=== PATIENT | female | born 1955 | race Caucasian/White ===

== ENCOUNTER 2019-09-09 12:05 | Outpatient (CLI) | payer OTHER, SELFPAY ==
--- NOTE | 2019-09-09 12:15 | XRR_ITS ---
PROCEDURE INFORMATION: Exam: XR Right Knee Exam date and time: 09/09/2019 12:33 PM Age: 64 years old Clinical indication: Pain; Knee; Right; Additional info: Right knee pain TECHNIQUE: Imaging protocol: XR Right knee. Views: 3 views. COMPARISON: No relevant prior studies available. FINDINGS: Bones/joints: Negative for acute bony abnormality Soft tissues: Normal. XR/XR knee RT 3V* [id number] IMPRESSION: No acute findings.
== END 2019-09-09 12:06 | disposition home or self-care (01) ==
LOC: RAD 12:10
PROVIDERS: Family Provider Electrodiagnostic Medicine; PCP Electrodiagnostic Medicine; Visit Provider Family Medicine
DX: M25.561 Pain in right knee (principal)
CPT/HCPCS: 73562; 80053; 80061; 82044; 83036; 85025

== ENCOUNTER 2019-10-12 06:58 | Outpatient (CLI) | payer OTHER, SELFPAY ==
--- NOTE | 2019-10-12 07:15 | MR_ITS ---
WS: [id number] MRI RIGHT KNEE HISTORY: right knee pain COMPARISON: 09/09/2019 Anterior cruciate ligament: Small amount increased signal in the central proximal ACL. No full-thickn ess tear. Posterior cruciate ligament: Mild buckling of the PCL. Medial collateral ligament: MCL is partially displaced from the knee joint by an extruded meniscus an d degenerative changes at the medial compartment. Posterior lateral corner structures: Intact. Medial menisci: Partially extruded body of the meniscus from the joint space. There is increased sign al in the partially extruded component. Linear area of increased signal in the posterior horn consist ent with a horizontal tear which extends towards the free edge and midbody. Lateral meniscus: Fraying along the articular surfaces of the posterior horn. There is some intrasubs tance degeneration and smudginess of the free edge but no definite tear. Extensor mechanism: Distal quadriceps tendon and patellar tendons are intact. Fluid and soft tissue: No joint effusion. No Tracy's cyst. Osseous and articular structures: Patellofemoral compartment: No full-thickness defects. Slight lateral tilting of the patella. No joleen ow edema. Medial compartment: Mild narrowing of the medial compartment. Thinning and fissuring of the cartilage with small osteophytes from the femoral condyle and tibial plateau. Small amount of marrow edema in the tibial plateau adjacent to the MCL. Lateral compartment: Mild narrowing of the lateral compartment with thinning and fissuring of the car tilage. MR/MR knee RT wo con* [id number] IMPRESSION: 1. Technically limited evaluation of the knee due to body habitus and inabilit y to utilize coil correctly. 2. Extruded medial meniscus with horizontal tear in the posterior horn. 3. Moderate internal derangement medial compartment with mild loss of joint sp andree, thinning of the cartilage and the extruded meniscus. 4. Intrasubstance degeneration posterior horn lateral compartment. 5. Suspect partial tear proximal ACL.
== END 2019-10-12 06:59 | disposition home or self-care (01) ==
LOC: RADSHAW 07:00
PROVIDERS: Family Provider Electrodiagnostic Medicine; PCP Family Medicine; Visit Provider Family Medicine
DX: S83.241A Other tear of medial meniscus, current injury, right knee, initial encounter (principal); X58.XXXA Exposure to other specified factors, initial encounter; M17.11 Unilateral primary osteoarthritis, right knee; M25.561 Pain in right knee
CPT/HCPCS: 73721

== ENCOUNTER 2019-12-14 14:49 | Outpatient (RCR) | payer OTHER, SELFPAY | END 2020-01-03 23:59 | disposition home or self-care (01) | LOC: SPT 14:49 | PROVIDERS: PCP Family Medicine; Referring Provider Orthopaedic Surgery; Visit Provider Orthopaedic Surgery | DX: M17.11 Unilateral primary osteoarthritis, right knee (principal) | CPT/HCPCS: 97110; 97112; 97161; 97530 ==

== ENCOUNTER 2020-05-23 09:34 | Outpatient (RCR) | payer OTHER, SELFPAY | END 2020-06-04 23:59 | disposition home or self-care (01) | LOC: SPT 09:34 | PROVIDERS: PCP Family Medicine; Referring Provider Family Medicine; Visit Provider Family Medicine | DX: S86.112D Strain of other muscle(s) and tendon(s) of posterior muscle group at lower leg level, left leg, subsequent encounter (principal); X58.XXXD Exposure to other specified factors, subsequent encounter | CPT/HCPCS: 97110; 97161 ==

== ENCOUNTER 2020-06-05 06:00 | Outpatient (RCR) | payer SELFPAY | END 2020-07-04 23:59 | disposition home or self-care (01) | LOC: SPT 06:00 | PROVIDERS: PCP Family Medicine; Referring Provider Family Medicine; Visit Provider Family Medicine | DX: S86.112D Strain of other muscle(s) and tendon(s) of posterior muscle group at lower leg level, left leg, subsequent encounter (principal); X58.XXXD Exposure to other specified factors, subsequent encounter | CPT/HCPCS: 97110 ==

== ENCOUNTER → 2020-08-01 10:37 | Outpatient (BNVA) | payer MEDICARE, SELFPAY | PROVIDERS: PCP Family Medicine; Visit Provider Family Medicine | DX: E11.9 Type 2 diabetes mellitus without complications (principal); I10 Essential (primary) hypertension; E03.9 Hypothyroidism, unspecified | CPT/HCPCS: 80053; 80061; 81015; 82043; 83036; 84443; 85025 ==

== ENCOUNTER → 2020-08-29 08:25 | Outpatient (BNVA) | payer MEDICARE, SELFPAY | PROVIDERS: PCP Family Medicine; Visit Provider Obstetrics & Gynecology | DX: Z01.419 Encounter for gynecological examination (general) (routine) without abnormal findings (principal) | CPT/HCPCS: 88175 ==

== ENCOUNTER → 2020-09-22 12:01 | Outpatient (BNVA) | payer MEDICARE, SELFPAY | PROVIDERS: PCP Family Medicine; Visit Provider Surgery | DX: Z01.812 Encounter for preprocedural laboratory examination (principal) | CPT/HCPCS: 87635 ==

== ENCOUNTER → 2020-09-27 08:28 | Day surgery (SDC) | payer MEDICARE, SELFPAY ==
[2020-09-26 10:40] VITALS: BMI 45.1
[2020-09-27 09:09] VITALS: BP 148/88; PULSE 99; RESP 18; TEMP 36.5; O2SAT 96
[2020-09-27 09:11] LABS: Glucose Point of Care 161 mg/dL (70-110)
[2020-09-27] MEDS: sodium chloride 0.9% 1,000 ML 30 ML IV (09:12)
--- NOTE | 2020-09-27 09:14 | PC.NURSE ---
Pt voices prep was inadequate. Discussed with Dr Wharton. Will need tap water enema prior to procedure.
--- NOTE | 2020-09-27 09:18 | P.ANESASSM_ITS ---
Pre-Anesthetic Assessment Pre-Anesthetic Assessment: Height/Weight: Height 1.68 m Weight 127.006 kg Temp Pulse Resp BP Pulse Ox 97.7 F 99 18 148/88 96 09/27/20 09:09 09/27/20 09:09 09/27/20 09:09 09/27/20 09:09 09/27/20 09:09 Preop Diagnosis: screening colonoscopy Proposed Procedure: Operation Date: 09/27/20 09:30 Proposed Procedures p Colonoscopy 15135 Z12.11(Not Applicable) - Zuhair Wharton MD Was Beta Nina taken within 24 hours: Yes Last intake: Intake Last Liquid Date 09/26/20 Last Solid Date 09/25/20 Social: Social History: No alcohol and No tobacco Exam: Pre-Anes Outpt Exam: alert, oriented x 3, clear to auscultation bilaterally and regular rate & rhythm Airway: Submandibular: WNL Cervical ROM: WNL MP: 2 Dentition: Full CV/HEM: CV/HEM: HTN Metabolic: Metabolic: DM, Morbid obesity and Thyroid Musc/skel: Musc/skel: OA/DJD Anesthetic Plan: ASA status: 3 Anesthesia: MAC Risk of > 500 ml blood loss (7ml/kg in children): No Meds/Allergies Current Medications: Current Medications Generic Name Dose Route Start Last Admin Trade Name Freq PRN Reason Stop Dose Admin Sodium Chloride 1,000 mls @ 30 ml s/hr 09/27/20 08:45 09/27/20 09:12 Sodium Chloride 0.9% IV 09/28/20 08:44 30 mls/hr .Q24H RADHA Administration PFSH Anesthesia PFSH: Medical History (Updated 09/06/20 @ 16:25 by Becky Tellez MD) Anxiety and depression States that the anxiety is stress-induced and diagnosed in 2019 and is controlled by venlafaxine provided by her primary care provider. Benign hypertension Diagnosed in her 50s and controlled with medication managed by her primary care provider High cholesterol Diagnosed in July 2020 and is currently on medication. Hypothyroid Diagnosed in her 50s and controlled with medication managed by her primary care provider. Does not have an coil binder No pertinent past medical history Denies diabetes, asthma, seizures, DVT/PE PCP: Christos Type II diabetes mellitus, well controlled Diagnosed in 2007 and controlled with medication. She states her last hemoglobin A1c was 6. This is being managed by her primary care provider. Surgical History (Updated 09/06/20 @ 16:19 by Becky Tellez MD) H/O cataract extraction 2018-bilateral S/P dilation and curettage Hysteroscopy, D & C---04/24/2018---[place] for postmenopausal bleeding and presence of [place] [facility] [place]ology showed benign superficial endometrial and endocervical glands and stroma. Family History (Updated 08/29/20 @ 14:41 by Amy Gallardo, KATHLEEN) Father Heart disease Hypertension Hyperlipidemia Bleeding disorder bleeding problems started after a surgery Grandmother Diabetes paternal Sister Bleeding disorder bleeding problems started after a surgery Denies family history of Colon cancer Ovarian cancer Breast cancer Uterine cancer Thyroid condition Stroke Social History Smoking and tobacco status: never smoked Alcohol intake: never Data Anesthesia Other Labs: Laboratory Results - last 48 hr 09/27/20 09:06 POC Glucose 161 H Cardiac Studies: No Data to Display
--- NOTE | 2020-09-27 09:27 | W.PM.OPSFHP ---
Same Day Surgery H&P Indication for Procedure/HPI DATE OF PROCEDURE: September 27, 2020 CHIEF COMPLAINT/INDICATIONFOR SURGICAL PROCEDURE: Screening colonoscopy PREOP DIAGNOSIS: screening colonoscopy PLANNED PROCEDRUE: Operation Date: 09/27/20 09:30 Proposed Procedures p Colonoscopy 18507 Z12.11(Not Applicable) - Zuhair Wharton MD Medications/Allergies* Home Medications Medication Instructions Recorded Confirmed Type cholecalciferol (vitamin D3) 125 5,000 unit PO DAILY tab 09/09/19 09/26/20 History mcg (5,000 unit) disintegrating tablet naproxen sodium 220 mg tablet 220 mg PO DAILY PRN tab 08/01/20 09/26/20 History multivitamin [Multi-Day] 1 tab PO DAILY 09/26/20 09/26/20 History Allergies/Adverse Reactions Allergy/AdvReac Type Severity Reaction Status Date / Time egg Allergy Severe ADR-Itching Verified 09/27/20 09:08 milk Allergy Severe ADR-Itching Verified 09/27/20 09:08 peanut Allergy Severe ADR-Itching Verified 09/27/20 09:08 Current Medications: Generic Name Dose Route Start Last Admin Trade Name Freq PRN Reason Stop Dose Admin Sodium Chloride 1,000 mls @ 30 mls/hr 09/27/20 08:45 09/27/20 09:12 Sodium Chloride 0.9% IV 09/28/20 08:44 30 mls/hr .Q24H RADHA Administration Pertinent History/Comorbid Conditions* Medical History (Updated 09/06/20 @ 16:25 by Becky Tellez MD) Anxiety and depression States that the anxiety is stress-induced and diagnosed in 2019 and is controlled by venlafaxine provided by her primary care provider. Benign hypertension Diagnosed in her 50s and controlled with medication managed by her primary care provider High cholesterol Diagnosed in July 2020 and is currently on medication. Hypothyroid Diagnosed in her 50s and controlled with medication managed by her primary care provider. 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 She states her last hemoglobin A1c was 6. This is being managed by her primary care provider. Surgical History (Updated 09/06/20 @ 16:19 by Becky eTllez MD) H/O cataract extraction 2018-bilateral S/P dilation and curettage Hysteroscopy, D & C---04/24/2018---[place] for postmenopausal bleeding and presence of [place] [facility] [place]ology showed benign superficial endometrial and endocervical glands and stroma. Family History (Updated 08/29/20 @ 14:41 by Amy Gallardo, KATHLEEN) Diabetes Grandmother paternal Heart disease Father Hyperlipidemia Father Bleeding disorder Father bleeding problems started after a surgery Sister bleeding problems started after a surgery Hypertension Father Denies family history of Colon cancer Ovarian cancer Breast cancer Uterine cancer Thyroid condition Stroke Social History Smoking and tobacco status: never smoked Alcohol intake: never Pertinent Exam Findings alert, oriented x 3 and regular rate & rhythm Recommendations Surgery/Procedure today Coding Level of Care Code Acute Gypsum Calciner for Melinda Pete
--- NOTE | 2020-09-27 10:00 | PC.NURSE ---
Large results from tap water enema. Large stool, unable to see bottom of toilet. Will repeat tap water enema. Pt verbalizes understanding.
--- NOTE | 2020-09-27 10:31 | PC.NURSE ---
Pt rescheduled procedure for tomorrow r/t poor prep. Pt will continue clear liquid deit and repeat prep. NPO after midnight. Pt verbalized understanding. IV left in place in R hand. Secured with coban. Denies other needs at this time.
== END ==
PROVIDERS: PCP Family Medicine; Visit Provider Surgery
PROC: 0DJD8ZZ Inspection of Lower Intestinal Tract, Via Natural or Artificial Opening Endoscopic (ICD-10-PCS; CPT 45378; principal; 2020-09-27 10:00)
DX: Z53.8 Procedure and treatment not carried out for other reasons (principal); Z12.11 Encounter for screening for malignant neoplasm of colon; I10 Essential (primary) hypertension; E11.9 Type 2 diabetes mellitus without complications; E66.01 Morbid (severe) obesity due to excess calories; Z68.42 Body mass index [BMI] 45.0-49.9, adult; M19.90 Unspecified osteoarthritis, unspecified site; E03.9 Hypothyroidism, unspecified; Z82.49 Family history of ischemic heart disease and other diseases of the circulatory system; Z83.3 Family history of diabetes mellitus
CPT/HCPCS: 36416; 82962; J7030

== ENCOUNTER 2020-09-28 08:07 | Day surgery (SDC) | payer MEDICARE, SELFPAY ==
[2020-09-27 12:51] VITALS: BMI 41.9
[2020-09-28 09:11] VITALS: BP 153/90; PULSE 100; RESP 16; TEMP 36.1; O2SAT 95
--- NOTE | 2020-09-28 09:15 | P.ANESUD_ITS ---
Pre-Anesthetic Update Pre-Anesthetic Assessment: Date of Surgery/Procedure: 09/28/20 Preop Tatiana gnosis: screening colonoscopy Proposed Procedure: Operation Date: 09/28/20 09:00 Proposed Procedures p Colonoscopy 53066 z12.11(Not Applicable) - Zuhair Wharton MD Any changes to Pre-Anesthetic Assessment?: No Last Intake: Intake Last Liquid Date 09/27/20 Last Liquid Time 23:30 Last Solid Date 09/25/20 Last Solid Time 22:00 Vitals: Temperature 97 F L 09/28/20 09:11 Temperature Source Temporal Artery S can 09/28/20 09:11 Pulse Rate 100 09/28/20 09:11 Respiratory Rate 16 09/28/20 09:11 Blood Pressure 153/90 09/28/20 09:11 Blood Pressure Rachel n 111 09/28/20 09:11 Pulse Oximetry 95 09/28/20 09:11 Oxygen Delivery Me thod 09/28/20 09:11 Exam: Pre-Anes Outpt Exam: alert, oriented x 3, clear to auscultation bilaterally and regular rate & rhythm Cardiac Studies: No Data to Display
[2020-09-28 09:19] LABS: Glucose Point of Care 195 mg/dL (70-110)
[2020-09-28] MEDS: sodium chloride 0.9% 1,000 ML 30 ML IV (09:20)
--- NOTE | 2020-09-28 09:22 | W.PM.OPSUD ---
Surgery/Procedure H&P Update DATE OF PROCEDURE: September 28, 2020 DATE H&P PERFORMED: 09/27/20 H&P UPDATE INFORMATION: I have reviewed H&P completed within last 30 days, I have examined patient prior to procedure and No changes to prior documentation PREOP DIAGNOSIS: screening colonoscopy PLANNED PROCEDURE: Operation Date: 09/28/20 09:00 Proposed Procedures p Colonoscopy 13341 z12.11(Not Applicable) - Zuhair Wharton MD
[2020-09-28 09:52] VITALS: BP 166/99; PULSE 94; RESP 16; TEMP 36.7; O2SAT 94
--- NOTE | 2020-09-28 10:26 | ANE.PACU2 ---
Inpatient post-anesthesia follow up: Airway intact: Yes Vital signs: Temperature 98.1 F Pulse Rate 94 Respiratory Rate 16 Blood Pressure 166/99 Pulse Oximetry 94 Oxygen Delivery Me thod Room Air Oxygen Flow Rate Fraction of Inspir ed Oxygen Hydration adequate: Yes Nausea and vomiting: No Pain level: 1 Mental status: Baseline
== END 2020-09-28 10:24 | disposition home or self-care (01) ==
PROVIDERS: PCP Family Medicine; Visit Provider Surgery
PROC: 0DJD8ZZ Inspection of Lower Intestinal Tract, Via Natural or Artificial Opening Endoscopic (ICD-10-PCS; CPT 45378; principal; 2020-09-28 09:00)
DX: Z12.11 Encounter for screening for malignant neoplasm of colon (principal); D17.5 Benign lipomatous neoplasm of intra-abdominal organs; I10 Essential (primary) hypertension; E11.9 Type 2 diabetes mellitus without complications; E03.9 Hypothyroidism, unspecified
CPT/HCPCS: 36416; 45378; 82962; G0121; J2704; J7030

== ENCOUNTER 2020-10-03 14:37 | Outpatient (CLI) | payer MEDICARE, SELFPAY ==
--- NOTE | 2020-10-03 14:47 | MM_ITS ---
WS: [id number] SCREENING DIGITAL MAMMOGRAM WITH CAD HISTORY: SCREENING COMPARISON: 09/02/2018, 08/21/2017 and 07/20/2014 Bilateral CC and MLO views submitted. Computer aided detection analyzed. Breast composition: There are scattered areas of fibroglandular density. Increasing asymmetry in the lateral RIGHT breast on the CC projection measures 10 mm. Probably in the superior breast on the late ral projection. Benign calcifications in each breast. MM/[place] [id number] IMPRESSION: BI-RADS: 0-Incomplete: Need additional imaging evaluation FOLLOW UP: Need Additional Imaging RIGHT breast: Spot compression views (CC and MLO). True ML. Ultrasound to follo w if abnormality persists.
== END 2020-10-03 14:38 | disposition home or self-care (01) ==
LOC: RADSHAW 14:38
PROVIDERS: PCP Family Medicine; Visit Provider Family Medicine
DX: Z12.31 Encounter for screening mammogram for malignant neoplasm of breast (principal); N64.89 Other specified disorders of breast
CPT/HCPCS: 77067

== ENCOUNTER → 2020-10-11 07:44 | Outpatient (BNVA) | payer MEDICARE, SELFPAY | PROVIDERS: PCP Family Medicine; Visit Provider Family Medicine | DX: E78.00 Pure hypercholesterolemia, unspecified (principal) | CPT/HCPCS: 80053 ==

== ENCOUNTER 2020-10-27 08:17 | Outpatient (CLI) | payer MEDICARE, SELFPAY ==
--- NOTE | 2020-10-27 08:30 | US_ITS ---
WS: [id number] ADDITIONAL VIEWS RIGHT BREAST RIGHT breast ultrasound, limited HISTORY: ABNORMAL MAMMOGRAM COMPARISON: 10/03/2020, 09/02/2018 and 08/21/2017 Compression views right CC and MLO projection. True ML also submitted. The asymmetry in the lateral RIGHT breast seen best on the CC projection nearly completely resolves. There is still a mildly prominent asymmetry which will be followed up by ultrasound. Benign vascular calcifications. RIGHT breast ultrasound, limited. Round hypoechoic mass at 9:00, 1 cm from the nipple measures 9 x 6 x 7 mm. Size and location corresp ond to the mammographic abnormality. No increased vascularity. Similar mass was present on the study from 2017. On the most recent examination this mass was partially obscured. US/US breast RT complete [id number] IMPRESSION: BI-RADS: 3-Probably Benign FOLLOW-UP: 6 Month Follow-up Recommend 6 month ultrasound follow-up of the mass at 9:00, 1 cm from the nippl e in the RIGHT breast. I suspect this mass is been present since 2017 but inter mittently visualized due to overlying fibroglandular tissue. Consider short-ter m follow-up. Alternatively, this may undergo ultrasound guided biopsy.
== END 2020-10-27 08:18 | disposition home or self-care (01) ==
LOC: RADSHAW 08:21
PROVIDERS: PCP Family Medicine; Visit Provider Family Medicine
DX: R92.8 Other abnormal and inconclusive findings on diagnostic imaging of breast (principal); N63.15 Unspecified lump in the right breast, overlapping quadrants
CPT/HCPCS: 76641; 77065

== ENCOUNTER 2020-11-09 12:30 | Outpatient (CLI) | payer MEDICARE, SELFPAY ==
--- NOTE | 2020-11-09 13:00 | US_ITS ---
WS: [id number] ULTRASOUND-GUIDED RIGHT BREAST BIOPSY CLINICAL INFORMATION: abnormal mammogram COMPARISON: None. FINDINGS: The procedure including risks, benefits, and complications were discussed with the patient who agreed to proceed. Using sterile technique patient was prepped and draped in the usual sterile fashion. Aft er 1% lidocaine utilizing real-time ultrasound guidance 4 14-gauge cores were obtained of the right b reast lesion at the 9 o'clock position. The lesion collapsed after the first biopsy sample consistent with complex cystic lesion. Subsequently a titanium clip was placed in the biopsy cavity. No immedia te complications. Pathology demonstrates Benign fibrocystic changes with apocrine metaplasia and columnar cell hyperplasia. No invasive carcinoma identified. US/[place] [id number] IMPRESSION: 1. Uncomplicated ultrasound-guided right breast biopsy. 2. The pathology demonstrates benign fibrocystic changes with apocrine metapla griselda and columnar cell hyperplasia. No invasive carcinoma. Recommend return to a nnual screening mammography. BI-RADS: 2-Benign FOLLOW UP: 1 Year Follow-up
== END 2020-11-09 12:31 | disposition home or self-care (01) ==
LOC: RAD 12:33
PROVIDERS: PCP Family Medicine; Visit Provider Family Medicine
DX: N63.10 Unspecified lump in the right breast, unspecified quadrant (principal); N60.81 Other benign mammary dysplasias of right breast
CPT/HCPCS: 19083; 88305

== ENCOUNTER → 2020-12-01 10:51 | Outpatient (BNVA) | payer MEDICARE, SELFPAY | PROVIDERS: PCP Family Medicine; Visit Provider Family Medicine | DX: E78.00 Pure hypercholesterolemia, unspecified (principal); F41.1 Generalized anxiety disorder | CPT/HCPCS: 80061 ==

== ENCOUNTER → 2021-02-02 09:20 | Outpatient (BNVA) | payer MEDICARE, SELFPAY | PROVIDERS: PCP Family Medicine; Visit Provider Family Medicine | DX: E11.9 Type 2 diabetes mellitus without complications (principal); I10 Essential (primary) hypertension | CPT/HCPCS: 80053; 83036 ==

== ENCOUNTER → 2021-05-04 08:50 | Outpatient (BNVA) | payer MEDICARE, SELFPAY | PROVIDERS: PCP Family Medicine; Visit Provider Family Medicine | DX: E78.00 Pure hypercholesterolemia, unspecified (principal); I10 Essential (primary) hypertension; E11.9 Type 2 diabetes mellitus without complications; E03.9 Hypothyroidism, unspecified; F41.9 Anxiety disorder, unspecified; F32.9 Major depressive disorder, single episode, unspecified; Z12.31 Encounter for screening mammogram for malignant neoplasm of breast | CPT/HCPCS: 80053; 80061; 82043; 83036; 84443; 85025 ==

== ENCOUNTER → 2021-08-08 09:30 | Outpatient (BNVA) | payer MEDICARE, SELFPAY | PROVIDERS: PCP Family Medicine; Visit Provider Family Medicine | DX: E11.9 Type 2 diabetes mellitus without complications (principal) | CPT/HCPCS: 80053; 83036 ==

== ENCOUNTER → 2021-11-07 09:49 | Outpatient (BNVA) | payer MEDICARE, SELFPAY | PROVIDERS: PCP Family Medicine; Visit Provider Family Medicine | DX: E11.9 Type 2 diabetes mellitus without complications (principal); E03.9 Hypothyroidism, unspecified; I10 Essential (primary) hypertension; E78.00 Pure hypercholesterolemia, unspecified; M25.512 Pain in left shoulder; G89.29 Other chronic pain | CPT/HCPCS: 80053; 83036; 84443 ==

== ENCOUNTER → 2022-05-18 09:39 | Outpatient (BNVA) | payer MEDICARE, SELFPAY | PROVIDERS: PCP Family Medicine; Visit Provider Family Medicine | DX: I10 Essential (primary) hypertension (principal); E78.00 Pure hypercholesterolemia, unspecified; E11.9 Type 2 diabetes mellitus without complications; E03.9 Hypothyroidism, unspecified; F41.1 Generalized anxiety disorder; J01.10 Acute frontal sinusitis, unspecified | CPT/HCPCS: 80053; 80061; 82043; 83036; 84443; 85025 ==

== ENCOUNTER 2022-06-07 08:35 | Outpatient (CLI) | payer MEDICARE, SELFPAY ==
--- NOTE | 2022-06-07 08:45 | MM_ITS ---
WS: [id number] Bilateral screening 3D tomosynthesis digital mammogram, 06/07/2022 Clinical Data: screening mammogram Comparison: 10/27/2020, 10/03/2020, 09/02/2018, 08/21/2017, 08/15/2016, 07/22/2015, 07/20/2014, 06/09/2013, 02/15/2011. Findings: The breast parenchymal pattern shows heterogeneous density. No spiculated masses or clustered calcifi cations are seen. There are no secondary signs of carcinoma. There are benign vascular calcifications and scattered benign calcifications throughout both breasts. MM/[place] [id number] Impression: 1. Negative bilateral mammogram unchanged. 2. Recommend annual screening mammograms. BIRADS: 1-Negative FOLLOW UP: 1 Year Follow-up The CAD checker dump grounds was used.
== END 2022-06-07 08:36 | disposition home or self-care (01) ==
LOC: RAD 08:36
PROVIDERS: PCP Family Medicine; Visit Provider Family Medicine
DX: Z12.31 Encounter for screening mammogram for malignant neoplasm of breast (principal)
CPT/HCPCS: 77063; 77067

== ENCOUNTER 2022-11-25 06:35 | Emergency (ER) | payer MEDICARE, SELFPAY ==
[2022-11-25 06:46] VITALS: BP 144/78; PULSE 79; RESP 18; TEMP 36.4; O2SAT 96; BMI 43.5
--- NOTE | 2022-11-25 07:06 | CTR_ITS ---
PROCEDURE INFORMATION: Exam: CT Head Without And With Contrast Exam date and time: 11/25/2022 8:09 AM Age: 67 years old Clinical indication: Other: Right ear abscess vs cellulitis, lymphadenopathy, bells pals TECHNIQUE: Imaging protocol: Computed tomography of the head without and with contrast. Total images: 2 Radiation optimization: All CT scans at this facility use at least one of these dose optimization techniques: automated exposure control; mA and/or kV adjustment per patient size (includes targeted exams where dose is matched to clinical indication); or iterative reconstruction. Contrast material: OMNI 350; Contrast volume: 80 ml; Contrast route: INTRAVENOUS (IV); REPORTING DATA: Count of CT and Cardiac NM exams in prior 12 months: This patient has received 0 known CTs and 0 known cardiac nuclear medicine studies in the 12 months prior to the current study. COMPARISON: No relevant prior studies available. RADIATION DOSE METRICS: Total DLP (mGy-cm): 2368.58 FINDINGS: Brain: Intracranial vasculature appears unremarkable. Cerebral ventricles: No ventriculomegaly. Paranasal sinuses: Visualized sinuses are unremarkable. No fluid levels. Mastoid air cells: See Vasculature finding. Orbital cavities: Prior bilateral lens replacements noted. Bones/joints: Unremarkable. No acute fracture. Soft tissues: Unremarkable. Vasculature: Normal opacification of dural sinuses. No evidence of dural sinus thrombosis. Normal aeration of mastoid air cells and tympanic cavities. Other findings: No abnormal enhancement on postcontrast imaging. CT/CT head wo/w con [id number] IMPRESSION: 1. No acute intracranial pathology detected. 2. No acute process identified.
--- NOTE | 2022-11-25 07:18 | W.ED.NEUROSD ---
HPI - Neuro Symptoms/Deficit General: Chief Complaint: Neuro Symptoms/Deficit Stated Complaint: right side of face numb/ear infection Time Seen by Provider: 11/25/22 06:55 History of Present Illness: Patient presents to the ER with complaints of right facial numbness and droop. This started yesterday approximately 4 PM. Patient has no other part of her body involved. Patient is being currently treated for right ear infection/abscess cellulitis, with oral and topical antibiotics. The pain is not improving in her ear and she has right submandibular lymphadenopathy. Onset (ago): day(s) (Began yesterday) Time: 14:30 Last Observed Normal: 14:30 Location: right face History of same: No Severity: mild Quality: weak and numb Relieving factors: none Exacerbating factors: none Context: gradual onset On Anticoagulants: No Associated symptoms: Reports no associated symptoms; Deny chest pain, nausea or vomiting Treatments Prior to Arrival: none Review of Systems General: Reports: 10 or more systems reviewed and unremarkable except in HPI and below Const: Denies: fever(s) or chills Eyes: Denies: change in vision or photophobia ENMT: Denies: throat pain or odynophagia Card: Denies: chest pain, palpitations or irregular heart rhythm Resp: Denies: dyspnea, productive cough or non-productive cough GI: Denies: abdominal pain, nausea, vomiting or diarrhea : Denies: flank pain, difficulty voiding or dysuria Musc: Denies: neck pain or back pain Neuro: Reports: sensory changes PFS ED PFSH: Medical History Anxiety and depression States that the anxiety is stress-induced and diagnosed in 2019 and is controlled by venlafaxine provided by her primary care provider. Benign hypertension Diagnosed in her 50s and controlled with medication managed by her primary care provider High cholesterol Diagnosed in July 2020 and is currently on medication. Hypothyroid Diagnosed in her 50s and controlled with medication managed by her primary care provider. Does not have an trommel tender Type II diabetes mellitus, well controlled Diagnosed in 2007 and controlled with medication. She states her last hemoglobin A1c was 6. This is being managed by her primary care provider. Surgical History H/O cataract extraction 2017-bilateral S/P dilation and curettage Hysteroscopy, D & C---04/24/2018---performed for postmenopausal bleeding and presence of endometrial polyp by Dr. Steward at [facility] – [place]. -Pathology showed benign superficial endometrial and endocervical glands and stroma. Status post colonoscopy (09/28/20) normal Family History Father Heart disease Hypertension Hyperlipidemia Bleeding disorder bleeding problems started after a surgery Grandmother Diabetes paternal Sister Bleeding disorder bleeding problems started after a surgery Denies family history of Colon cancer Ovarian cancer Breast cancer Uterine cancer Thyroid condition Stroke Social History Smoking and tobacco status: never smoked Alcohol intake: never Substance/Drug Use: never NIH stroke score NIHSS: Facial Palsy - 4: Minor Paralysis Physical Exam Const: COMMON NORMALS: no acute distress, average body habitus, patient oriented x3, no limitations, healthy appearing, alert and well nourished HENMT: COMMON NORMALS: normocephalic, atraumatic, hearing grossly normal bilaterally, external ears normal, Normal external nose present and moist oral mucous membranes HEAD & SCALP: normocephalic and atraumatic NOSE: Normal external nose present EXTERNAL EAR: Yes external ears normal Eye: COMMON NORMALS: Equal, round and reactive pupils present, EOMs intact bilaterally, conjunctivae normal and no scleral icterus CONJUNCTIVA: Yes conjunctivae normal PUPIL: Yes Equal, round and reactive pupils present Neck/C-Spine: COMMON NORMALS: full ROM, supple, no meningeal signs, no JVD and Thyroid normal THYROID: Thyroid normal Lymph: OTHER: Positive right-sided submandibular lymphadenopathy Chest: COMMONS NORMALS: normal inspection of the chest and normal palpation of entire chest wall Resp: COMMON NORMALS: normal respiratory effort, No retractions, No use of accessory muscles and clear to auscultation bilaterally AUSCULTATION: clear to auscultation bilaterally Cardio: COMMON NORMALS: no JVD, regular rate, regular rhythm, S1 normal heart sound present and S2 normal heart sound present RATE: regular rate RHYTHM: regular rhythm HEART SOUNDS: S1 normal heart sound present and S2 normal heart sound present GI: COMMON NORMALS: Normal to inspection, nondistended, normoactive bowel sounds present, Soft to palpation, non-tender, No hepatosplenomegaly present and no masses PALPATION: Yes Soft to palpation and Yes No hepatosplenomegaly present : COMMON NORMALS: Yes no CVA tenderness BLADDER/KIDNEY EXAM: Yes no CVA tenderness Back/Pelvis: COMMON NORMALS: no CVA tenderness Neuro: COMMON NORMALS: patient oriented x3, moves all extremities and no sensory deficits noted SENSORIUM/ORIENTATION: Yes alert MENINGEAL SIGNS: Yes no meningeal signs OTHER: Right-sided mild facial droop, sensation intact but patient says it is numb feeling. Psych: COMMON NORMALS: mental status grossly normal, Normal thought process present, cooperative, normal affect, speech normal and activity/motor behavior normal SPEECH: Yes normal speech THOUGHT PROCESS: Normal thought process present Course Vital Signs: Vital signs: Vital Signs Temperature 97.6 F 11/25/22 06:46 Pulse Rate 79 11/25/22 06:46 Respiratory Rate 18 11/25/22 06:46 Blood Pressure 144/78 11/25/22 06:46 Pulse Oximetry 96 11/25/22 06:46 MDM - Neuro Symptoms/Deficit Medical Decision Making Patient presents to the ER with complaints of right facial droop and numbness. This started yesterday. Patient is currently treated with topical and oral antibiotics for right ear infection. Lab work was obtained which is essentially benign head CT with and without contrast looking for an abscess/cellulitis of the right external ear was obtained the CT was benign. 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 Patient is currently on antibiotics but will be switched over to Bactrim and prednisone. Patient should follow-up with her primary care physician within approximately 1 week. Differential Diagnosis Unlikely carpal tunnel syndrome, convulsions, delirium, subarachnoid hemorrhage, peripheral neuropathy, cerebrovascular accident, multiple sclerosis or transient cerebral ischemia Medical Records I reviewed the patient's medical records. Lab Data I reviewed the patient's lab results. 11/25/22 07:25 11/25/22 07:[address] 11/25/22 07:06 IMPRESSION: 1. No acute intracranial pathology detected. 2. No acute process identified. Laboratory Results WBC 4.3 10^3/uL (4.0-10.0) 11/25/22 07:25 RBC 4.70 10^6/uL (4.1-5.3) 11/25/22 07:25 Hgb 13.2 g/dL (11.5-15.3) 11/25/22 07:25 Hct 40.3 % (37.0-47.0) 11/25/22 07:25 MCV 85.7 fl (81-99) 11/25/22 07:25 MCH 28.1 pg (28.0-34.0) 11/25/22 07:25 MCHC 32.8 g/dL (30.0-36.0) 11/25/22 07:25 RDW 13.3 % (12.1-15.1) 11/25/22 07:25 Plt Count 239 10^3/cmm (130-400) 11/25/22 07:25 MPV 9.7 fL (7.4-10.4) 11/25/22 07:25 Neut % (Auto) 40.7 % 11/25/22 07:25 Lymph % (Auto) 43.5 % 11/25/22 07:25 [place] % (Auto) 8.6 % 11/25/22 07:25 Eos % (Auto) 5.6 % 11/25/22 07:25 Baso % (Auto) 1.4 % 11/25/22 07:25 Neut # (Auto) 1.76 10^3/uL (1.8-7.7) L 11/25/22 07:25 Lymph # (Auto) 1.9 10^3/uL (0.8-4.8) 11/25/22 07:25 [place] # (Auto) 0.4 10^3/uL (0.2-0.9) 11/25/22 07:25 Eos # (Auto) 0.2 10^3/uL (0.0-0.8) 11/25/22 07:25 Baso # (Auto) 0.1 10^3/uL (0.0-0.1) 11/25/22 07:25 Nucleated RBC % (auto) 0 % 11/25/22 07:25 Nucleated RBCs # 0.0 /100WBC 11/25/22 07:25 ESR 6 mm/hr (0-15) 11/25/22 07:25 Sodium 140 mmol/L (136-145) 11/25/22 07:25 Potassium 3.5 mmol/L (3.5-5.1) 11/25/22 07:25 Chloride 101 mmol/L (98-107) 11/25/22 07:25 Carbon Dioxide 27 mmol/L (22-29) 11/25/22 07:25 Anion Gap 15.5 (5-19) 11/25/22 07:25 BUN 12 mg/dL (8-23) 11/25/22 07:25 Creatinine 0.6 mg/dL (0.5-0.9) 11/25/22 07:25 GFR Calculation 99.7 mL/min (90-130) 11/25/22 07:25 Glucose 157 mg/dL (65-115) H 11/25/22 07:25 Calculated Osmolality 293 mOsm/kg (285-295) 11/25/22 07:25 Calcium 8.9 mg/dL (8.5-10.5) 11/25/22 07:25 Total Bilirubin 0.4 mg/dL (0.15-1.2) 11/25/22 07:25 AST 27 U/L (0-32) 11/25/22 07:25 ALT 37 U/L (0-33) H 11/25/22 07:25 Alkaline Phosphatase 79 U/L (35-105) 11/25/22 07:25 C-Reactive Protein 3.0 mg/L (0.0-4.9) 11/25/22 07:25 Total Protein 6.5 g/dL (6.6-8.7) L 11/25/22 07:25 Albumin 3.9 g/dL (3.5-5.2) 11/25/22 07:25 Globulin 2.6 g/dL (1.3-4.6) 11/25/22 07:25 Discharge Plan Discharge Patient Disposition: Home Clinical Impression: Facial paralysis/[place] palsy, Cellulitis of right ear Condition: Stable Prescriptions: New sulfamethoxazole-trimethoprim [Bactrim DS] 800-160 mg tablet 1 tab PO BID Qty: 14 0RF prednisone 50 mg tablet 50 mg PO DAILY 7 Days Qty: 7 0RF No Action cholecalciferol (vitamin D3) 5,000 unit tablet,disintegrating 5,000 unit PO DAILY naproxen sodium [Aleve] 220 mg tablet 220 mg PO DAILY PRN (Reason: Pain) metoprolol succinate 25 mg tablet extended release 24 hr See Rx Instructions .ROUTE .COMPLEX Qty: 90 1RF Dose Instruction: TAKE 1 TABLET BY MOUTH EVERY DAY Rx Instructions: TAKE 1 TABLET BY MOUTH EVERY DAY ramipril 10 mg capsule See Rx Instructions .ROUTE .COMPLEX Qty: 90 1RF Dose Instruction: TAKE 1 CAPSULE BY MOUTH EVERY DAY Rx Instructions: TAKE 1 CAPSULE BY MOUTH EVERY DAY venlafaxine 75 mg capsule,extended release 24hr 75 mg PO DAILY Qty: 90 1RF Rx Instructions: 340 B amoxicillin 875 mg tablet 875 mg PO BID 7 Days Qty: 14 0RF mupirocin 2 % ointment 1 applic topical TID 7 Days Qty: 15 0RF Ozempic 0.25 mg or 0.5 mg(2 mg/1.5 mL) pen injector 0.5 mg SUBCUT .weekly 90 Days Qty: 18 1RF Rx Instructions: Use 1 mg sq weekly 340 B simvastatin 20 mg tablet See Rx Instructions .ROUTE .COMPLEX Qty: 90 1RF Dose Instruction: TAKE 1 TABLET BY MOUTH EVERYDAY AT BEDTIME Rx Instructions: TAKE 1 TABLET BY MOUTH EVERYDAY AT BEDTIME metformin 500 mg tablet See Rx Instructions .ROUTE .COMPLEX Qty: 180 1RF Dose Instruction: TAKE 1 TABLET BY MOUTH TWICE A DAY Rx Instructions: TAKE 1 TABLET BY MOUTH TWICE A DAY levothyroxine 50 mcg tablet See Rx Instructions .ROUTE .COMPLEX Qty: 90 1RF Dose Instruction: TAKE 1 TABLET BY MOUTH EVERY DAY Rx Instructions: TAKE 1 TABLET BY MOUTH EVERY DAY hydrochlorothiazide 25 mg tablet See Rx Instructions .ROUTE .COMPLEX Qty: 90 1RF Dose Instruction: TAKE 1 TABLET BY MOUTH EVERY DAY Rx Instructions: TAKE 1 TABLET BY MOUTH EVERY DAY multivitamin Tablet 1 tab PO DAILY Discharge Orders: Discharge ED (Routine); Ordered 11/25/22 Ordered By: Jean-Pierre Napoles Referrals: Amy Sher DO [Primary Care Provider] - 1 week Patient Instructions: Parsons Palsy (ED), Cellulitis (ED) Coding Level of Care Code ED Extracorporeal Technician for Melinda Pete
[2022-11-25 07:39] LABS: Basophils # 0.1 10^3/uL (0.0-0.1); Basophils % 1.4 %; Eosinophils # 0.2 10^3/uL (0.0-0.8); Eosinophils % 5.6 %; Hematocrit 40.3 % (37.0-47.0); Hemoglobin 13.2 g/dL (11.5-15.3); Lymphocytes # 1.9 10^3/uL (0.8-4.8); Lymphocytes % 43.5 %; Mean Corpuscular HGB Conc 32.8 g/dL (30.0-36.0); Mean Corpuscular Hemoglobin 28.1 pg (28.0-34.0); Mean Corpuscular Volume 85.7 fl (81-99); Mean Platelet Volume 9.7 fL (7.4-10.4); Monocytes # 0.4 10^3/uL (0.2-0.9); Monocytes % 8.6 %; Neutrophils # 1.76 10^3/uL (1.8-7.7); Neutrophils % 40.7 %; Nucleated Red Blood Cells % 0 %; Platelet Count 239 10^3/cmm (130-400); Red Cell Distribution Width 13.3 % (12.1-15.1); White Blood Count 4.3 10^3/uL (4.0-10.0)
[2022-11-25 07:55] LABS: Erythrocyte Sedimentation Rate 6 mm/hr (0-15)
[2022-11-25 07:56] LABS: Alanine Aminotransferase 37 U/L (0-33); Albumin Level 3.9 g/dL (3.5-5.2); Alkaline Phosphatase 79 U/L (35-105); Anion Gap 15.5 (5-19); Aspartate Amino Transferase 27 U/L (0-32); Blood Urea Nitrogen 12 mg/dL (8-23); Calcium 8.9 mg/dL (8.5-10.5); Carbon Dioxide 27 mmol/L (22-29); Chloride 101 mmol/L (98-107); Globulin 2.6 g/dL (1.3-4.6); Glomerular Filtration Rate 99.7 mL/min (90-130); Glucose 157 mg/dL (65-115); Osmolality Calculated 293 mOsm/kg (285-295); Potassium 3.5 mmol/L (3.5-5.1); Sodium 140 mmol/L (136-145); Total Bilirubin 0.4 mg/dL (0.15-1.2); Total Protein 6.5 g/dL (6.6-8.7)
[2022-11-25] MEDS: iohexol 350 mg/mL 500 mL Btl (per mL) IV (08:17)
[2022-11-25 09:19] VITALS: BP 133/80; PULSE 65; RESP 16; O2SAT 98
== END 2022-11-25 09:23 | disposition home or self-care (01) ==
PROVIDERS: Emergency Provider Emergency Medicine; PCP Family Medicine
DX: G51.0 Bell's palsy (principal); H60.11 Cellulitis of right external ear; Z79.84 Long term (current) use of oral hypoglycemic drugs; I10 Essential (primary) hypertension; E11.9 Type 2 diabetes mellitus without complications
CPT/HCPCS: 70470; 80053; 85025; 85651; 86140; 99285; Q9967

== ENCOUNTER → 2023-01-22 09:42 | Outpatient (BNVA) | payer MEDICARE, SELFPAY | PROVIDERS: PCP Family Medicine; Visit Provider Family Medicine | DX: E11.9 Type 2 diabetes mellitus without complications (principal); E03.9 Hypothyroidism, unspecified | CPT/HCPCS: 80053; 83036; 84443 ==

== ENCOUNTER 2023-06-17 15:08 | Outpatient (CLI) | payer MEDICARE, SELFPAY ==
--- NOTE | 2023-06-17 15:14 | MM_ITS ---
WS: [id number] BILATERAL 3D TOMOSYNTHESIS DIGITAL SCREENING MAMMOGRAPHY WITH CAD CLINICAL INFORMATION: SCREENING HISTORY: Screening mammogram. No current complaints. COMPARISON: 2021 TECHNIQUE: Bilateral CC and MLO views. FINDINGS: The breasts are composed of heterogeneous fibroglandular density tissue, which can limit the detectio n of small underlying mass lesions. No suspicious mass, asymmetry, calcifications, or architectural d istortion. No evidence of malignancy. Punctate and lucent centered calcifications. Vascular calcifica tions. Secretory calcifications. IMPRESSION: MM/[place] [id number] BI-RADS: 2-Benign FOLLOW UP: 1 Year Follow-up Recommend return to annual screening mammography.
== END 2023-06-17 15:09 | disposition home or self-care (01) ==
PROVIDERS: PCP Family Medicine; Visit Provider Family Medicine
DX: E11.9 Type 2 diabetes mellitus without complications (principal); Z12.31 Encounter for screening mammogram for malignant neoplasm of breast
CPT/HCPCS: 77063; 77067; 80053; 80061; 82043; 83036

== ENCOUNTER → 2023-12-02 09:52 | Outpatient (BNVA) | payer MEDICARE, OTHER, SELFPAY | PROVIDERS: PCP Family Medicine; Visit Provider Family Medicine | DX: I10 Essential (primary) hypertension (principal); E11.9 Type 2 diabetes mellitus without complications; E03.9 Hypothyroidism, unspecified | CPT/HCPCS: 80053; 80061; 82043; 83036; 84443; 85025 ==

== ENCOUNTER 2024-06-19 13:00 | Outpatient (CLI) | payer MEDICARE, OTHER, SELFPAY ==
--- NOTE | 2024-06-19 13:00 | XR_ITS ---
WS: [id number] SCREENING DEXA SCAN [employer] CLINICAL INFORMATION: Z78.0 - Asymptomatic menopausal state COMPARISON: 2015 FINDINGS: The L1-L4 bone mineral density measures 1.160 g/cm2. This corresponds to a T score score of -0.2 and Z score of 0.3. Left femoral neck bone mineral density measures 1.057 g/cm2. This corresponds to a T score of 0.4 and Z score of 1.0. Right femoral neck bone mineral density measures 1.012 g/cm2. This corresponds to a T score 0.0of and Z score of 0.6. Mean femoral neck bone mineral density measures 1.034 g/cm2. This corresponds to a T score of 0.2 and Z score of 0.8. XR/XR DEXA axial skeleton* [id number] IMPRESSION: Normal bone mineralization. Patient's FRAX calculated 10 year probability for major osteoporotic fracture i s 7.8% and osteoporotic hip fracture is 0.7%. Bone mineral density lumbar spine decreased -3.4% Bone mineral density femoral necks decreased -4.0%
--- NOTE | 2024-06-19 13:30 | MM_ITS ---
WS: [id number] BILATERAL 3D TOMOSYNTHESIS DIGITAL SCREENING MAMMOGRAPHY WITH CAD CLINICAL INFORMATION: Z12.31 - Encounter for screening mammogram for malignant ... HISTORY: Screening mammogram. No current complaints. COMPARISON: 2022 TECHNIQUE: Bilateral CC and MLO views. FINDINGS: Scattered fibroglandular densities bilaterally. No suspicious focal mass, asymmetry, calcifications, or architectural distortion. No evidence of malignancy. Vascular calcifications. Incidental punctate and lucent centered calcifications. Biopsy marker RIGHT breast. MM/MM [facility] tomosynthesis [id number] IMPRESSION: DENSITY: There are scattered areas of fibroglandular density. BI-RADS: 2 - Benign. FOLLOW UP: 1 Year Follow-up Recommend return to annual screening mammography.
== END 2024-06-19 13:01 | disposition home or self-care (01) ==
PROVIDERS: PCP Family Medicine; Visit Provider Nurse Practitioner Women's Health
DX: Z12.31 Encounter for screening mammogram for malignant neoplasm of breast (principal); R92.323 Mammographic fibroglandular density, bilateral breasts; R92.1 Mammographic calcification found on diagnostic imaging of breast; Z13.820 Encounter for screening for osteoporosis; Z78.0 Asymptomatic menopausal state
CPT/HCPCS: 77063; 77067; 77080

== ENCOUNTER → 2024-08-27 09:09 | Outpatient (BNVA) | payer MEDICARE, OTHER, SELFPAY | PROVIDERS: PCP Family Medicine; Visit Provider Family Medicine | DX: E03.9 Hypothyroidism, unspecified (principal); E11.9 Type 2 diabetes mellitus without complications; I10 Essential (primary) hypertension; F41.1 Generalized anxiety disorder; E66.9 Obesity, unspecified | CPT/HCPCS: 80053; 83036; 84439; 84443 ==

== ENCOUNTER → 2025-05-21 09:00 | Outpatient (BNVA) | payer MEDICARE, OTHER, SELFPAY | PROVIDERS: PCP Family Medicine; Visit Provider Family Medicine | DX: E11.9 Type 2 diabetes mellitus without complications (principal); E03.9 Hypothyroidism, unspecified | CPT/HCPCS: 80053; 83036; 84443 ==

== ENCOUNTER 2025-06-21 08:26 | Outpatient (CLI) | payer MEDICARE, OTHER, SELFPAY ==
--- NOTE | 2025-06-21 08:40 | MM_ITS ---
WS: [id number] BILATERAL SCREENING DIGITAL TOMOSYNTHESIS MAMMOGRAM WITH CAD HISTORY: screening COMPARISON: 06/19/2024, 06/17/2023, 06/07/2022 Bilateral CC and MLO views with tomosynthesis and synthetic mammography submitted. Computer aided detection analyzed. Breast composition: The breasts are heterogeneously dense, which may obscure small masses. No suspicious masses, microcalcifications or architectural distortion. Asymmetries and calcifications within each breast. Bilateral arterial breast calcifications. MM/MM scr [facility] tomosynthesis [id number] IMPRESSION: BI-RADS: 2 - Benign FOLLOW UP: 1 Year Follow-up
== END 2025-06-21 08:27 | disposition home or self-care (01) ==
LOC: RAD 08:27
PROVIDERS: PCP Family Medicine; Visit Provider Family Medicine
DX: Z12.31 Encounter for screening mammogram for malignant neoplasm of breast (principal); R92.333 Mammographic heterogeneous density, bilateral breasts; N64.89 Other specified disorders of breast; R92.1 Mammographic calcification found on diagnostic imaging of breast
CPT/HCPCS: 77063; 77067